=== PATIENT | male | born 1990 | race African-American/Black ===

== ENCOUNTER 2022-03-15 19:18 | Emergency (ER) | payer MEDICAID ==
[~2022-03-15] VITALS: Ht 182.9 cm; Wt 148.3 kg
[2022-03-15 20:46] VITALS: BP 141/81
[2022-03-15] MEDS ORDERED: AMOX-494 MT (21:54)
== END 2022-03-15 22:05 | disposition home or self-care (01) ==
LOC: ER 19:18
DX: H66.91 Otitis media, unspecified, right ear (principal); J45.909 Unspecified asthma, uncomplicated
CPT/HCPCS: 99283